=== PATIENT | male | born 1960 | race Caucasian/White ===

== ENCOUNTER 2019-08-27 07:03 | Outpatient (CLI) | payer BC, SELFPAY ==
[2019-08-27 07:29] LABS: HCT 45.8 % (40.0-50.0); HGB 15.9 g/dL (13.5-17.5); Mean Corp. HGB Concentration 34.7 g/dL (32.0-36.0); Mean Corpuscular Hemoglobin 32.5 pg (27.0-33.0); Mean Corpuscular Volume 93.7 fL (80-95); Mean Platelet Volume 9.1 fL (8.0-11.0); Platelet Count 258 x1000/uL (130-400); RBC 4.89 m/cumm (4.50-6.00); RBC Distribution Width 13.1 % (11.8-14.1); White Blood Cell Count 5.92 k/cumm (4.4-10.8)
[2019-08-27 08:29] LABS: ALT 53 U/L (16-63); AST 32 U/L (15-37); Albumin 3.8 g/dL (3.4-5.0); Alkaline Phosphatase 73 U/L (46-116); Anion Gap 6.3 mmol/L (3-11); BUN 15 mg/dL (7-18); Bilirubin, Total 0.6 mg/dL (0.2-1.0); CO2 29.7 mmol/L (21.0-32.0); CREATININE 1.22 mg/dL (0.70-1.30); Calcium 8.4 mg/dL (8.5-10.1); Calculated LDL 111 mg/dL (<100); Chloride 105 mmol/L (98-107); Cholesterol 159 mg/dL (<200); Glucose 104 mg/dL (74-106); HDL Cholesterol 30 mg/dL (40-60); Potassium 4.4 mmol/L (3.5-5.1); Sodium 141 mmol/L (136-145); Total Protein 6.8 g/dL (6.4-8.2); Triglyceride 90 mg/dL (<150)
== END 2019-08-27 07:23 ==
PROVIDERS: PCP Nurse Practitioner Family; Visit Provider Nurse Practitioner Family
DX: Z00.00 Encounter for general adult medical examination without abnormal findings (principal); I10 Essential (primary) hypertension; E78.6 Lipoprotein deficiency
CPT/HCPCS: 36415; 80053; 80061; 85027; 85025

== ENCOUNTER 2020-09-03 10:36 | Outpatient (REF) | payer BC, SELFPAY ==
[2020-09-03 15:51] LABS: Anion Gap 8.5 mmol/L (3-11); BUN 21 mg/dL (7-18); CO2 26.5 mmol/L (21.0-32.0); CREATININE 1.3 mg/dL (0.70-1.30); Calculated LDL 113 mg/dL (<100); Chloride 106 mmol/L (98-107); Cholesterol 164 mg/dL (<200); Glucose 103 mg/dL (74-106); HDL Cholesterol 34 mg/dL (40-60); Potassium 4.3 mmol/L (3.5-5.1); Sodium 141 mmol/L (136-145); Triglyceride 86 mg/dL (<150)
[2020-09-03 22:30] LABS: PSA, Screening 1.5 ng/mL (0.0-3.5)
== END 2020-09-03 10:37 | disposition home or self-care (01) ==
LOC: NCHCN 10:36
PROVIDERS: PCP Nurse Practitioner Family; Visit Provider Physician Assistant
DX: I10 Essential (primary) hypertension (principal); Z12.5 Encounter for screening for malignant neoplasm of prostate
CPT/HCPCS: 80048; 80061; 84153

== ENCOUNTER → 2021-11-24 02:59 | Outpatient (CLI) | payer BC, SELFPAY ==
--- NOTE | 2021-11-24 | DI.RAD_ITS ---
Exam(s) XR LUMBAR SPINE COMPLETE EXAM: XR LUMBAR SPINE COMPLETE CLINICAL HISTORY: LOW BACK PAIN M54.50, PAIN W/ RADICULOPATHY, NO TRAUMA TECHNIQUE: COMPARISON: No exams were available for comparison FINDINGS: Five views were obtained. There is a slight left convex lumbar scoliosis. SI joints appear well marni ntained. There is mild narrowing of intervertebral disc spaces throughout the lumbar spine. There are moderat e hypertrophic endplate and facet changes. No spondylolysis or spondylolisthesis. No evidence of fr acture. IMPRESSION: Moderate DJD lumbosacral spine. RADIATION DOSE DELIVERED: Total DLP
== END ==
PROVIDERS: PCP Nurse Practitioner Family; Visit Provider Physician Assistant
DX: M54.16 Radiculopathy, lumbar region (principal); M54.59 Other low back pain; M47.26 Other spondylosis with radiculopathy, lumbar region
CPT/HCPCS: 72110

== ENCOUNTER 2022-09-01 15:18 | Outpatient (REF) | payer OTHER, SELFPAY ==
[2022-09-01 16:35] LABS: Anion Gap 7.8 mmol/L (3-11); BUN 17 mg/dL (7-18); CO2 28.2 mmol/L (21.0-32.0); CREATININE 1.2 mg/dL (0.70-1.30); Calcium 9.3 mg/dL (8.5-10.1); Calculated LDL 97 mg/dL (<100); Chloride 105 mmol/L (98-107); Cholesterol 166 mg/dL (<200); Estimated GFR 69.23 (mL/min/1.73m2); Glucose 78 mg/dL (74-106); HDL Cholesterol 38 mg/dL (40-60); Potassium 4.4 mmol/L (3.5-5.1); Sodium 141 mmol/L (136-145); Triglyceride 157 mg/dL (<150)
[2022-09-04 09:51] LABS: PSA, Screening 1.2 ng/mL (<=4.5)
== END 2022-09-01 15:19 | disposition home or self-care (01) ==
LOC: NCHCN 15:18
PROVIDERS: Visit Provider Physician Assistant
DX: I10 Essential (primary) hypertension (principal); Z12.5 Encounter for screening for malignant neoplasm of prostate
CPT/HCPCS: 80048; 80061; 84153

== ENCOUNTER 2023-01-17 02:00 | Outpatient (CLI) | payer OTHER, SELFPAY ==
--- NOTE | 2023-01-17 14:47 | DI.RAD_ITS ---
Exam(s) XR ANKLE LT COMPLETE EXAM: XR ANKLE LT COMPLETE CLINICAL HISTORY: lt foot pain, achilles tendinitis,m76.62,m79.672,? daisy deformity TECHNIQUE: 2D digital imaging was performed of the left ankle. Three images were obtained. AP, lat eral and oblique views were obtained. COMPARISON: No exams were available for comparison FINDINGS: BONES: No acute fracture is present. No bony destructive lesion is seen. There is a plantar calcaneal spur. There is an enthesophyte at the posterior calcaneus. JOINTS:The ankle mortise is normally aligned. SOFT TISSUE: Normal. IMPRESSION: No acute fracture or dislocation. DATA REPOSITORY: RADIATION DOSE DELIVERED:
== END 2023-01-17 02:20 ==
LOC: DI 02:00
PROVIDERS: PCP Physician Assistant; Visit Provider Podiatrist
DX: M76.62 Achilles tendinitis, left leg (principal); M79.672 Pain in left foot
CPT/HCPCS: 73610

== ENCOUNTER 2023-09-25 07:56 | Outpatient (CLI) | payer OTHER, SELFPAY ==
[2023-09-25 08:07] LABS: ALT 64 U/L (16-63); AST 43 U/L (15-37); Albumin 3.8 g/dL (3.4-5.0); Alkaline Phosphatase 76 U/L (46-116); Anion Gap 8.1 mmol/L (3-11); BUN 17 mg/dL (7-18); Bilirubin, Total 0.7 mg/dL (0.2-1.0); CO2 27.9 mmol/L (21.0-32.0); CREATININE 1.4 mg/dL (0.70-1.30); Calcium 8.9 mg/dL (8.5-10.1); Calculated LDL 124 mg/dL (<100); Chloride 104 mmol/L (98-107); Cholesterol 189 mg/dL (<200); Estimated GFR 57.18 (mL/min/1.73m2); Glucose 114 mg/dL (74-106); HDL Cholesterol 34 mg/dL (40-60); Potassium 4.3 mmol/L (3.5-5.1); Sodium 140 mmol/L (136-145); Total Protein 7.4 g/dL (6.4-8.2); Triglyceride 156 mg/dL (<150)
== END 2023-09-25 07:57 | disposition home or self-care (01) ==
LOC: LBO 07:56
PROVIDERS: PCP Physician Assistant; Visit Provider Physician Assistant
DX: Z12.5 Encounter for screening for malignant neoplasm of prostate (principal); I10 Essential (primary) hypertension
CPT/HCPCS: 36415; 80053; 80061; 84153

== ENCOUNTER 2024-07-01 11:50 | Outpatient (CLI) | payer OTHER, SELFPAY ==
--- NOTE | 2024-07-01 06:00 | DI.RAD_ITS ---
Exam(s) XR PAIN CLINIC LUMBAR SP 2V EXAM: XR PAIN CLINIC LUMBAR SP 2V CLINICAL HISTORY: DX: Lumbar Radiculopathy. TECHNIQUE: Fluoroscopy was provided for the referring physician for guidance with performing pain cl inic injection procedure. COMPARISON: No exams were available for comparison FINDINGS: Please see procedure note for details. Fluoro time: 31.5 seconds RADIATION DOSE DELIVERED: Ka,r=15.46 mGy
[2024-07-01 12:01] VITALS: BP 165/88; PULSE 67; RESP 20; TEMP 37.1; O2SAT 97
--- NOTE | 2024-07-01 12:03 | PDOC.PAIN_ITS ---
Date of service: 07/01/24 Time of Service: 12:46 Pain Managment Procedure Note Procedure Note Procedure Note: Lumbar Interlaminar Epidural Steroid Injection ? Location: [L5-S1] ? Pre-procedure Diagnosis: M54.16- Radiculopathy, LUMBAR region ? Post-procedure Diagnosis:? The same as above ? Sedation:? ? None ? Medication: Depo-Medrol 80 mg, Omnipaque 1 mL ? Estimated blood loss:? less than 2 cc ? Surgeon:? Eyad Guerrero MD COMMENT: Reviewing MRI from 2021 showed severe stenosis of L3-4 and moderate at L4-5. Will proceed either with L4?5 or L5-S1 with catheter cephalad ? Procedure Detail:? The procedure and potential risks were explained to the patient and informed written consent was obtained. The patient was escorted to the procedure room and placed in the prone position. Pillows were utilized for proper positioning and comfort. Time out was performed in the procedure room with nursing staff confirming the patient's identity, procedure to be performed, allergies, and any blood thinning or anti-platelet medications.? The patient's neck and upper back was prepped with ChloraPrep and draped in a sterile fashion. Sterile technique was maintained throughout the procedure.? Sterile gloves were used, a face mask was worn, and new single dose vials of all medications were used with the top being swabbed with alcohol and given time to dry prior to withdrawal of medication. Lidocane 1% was used to anesthetize the skin.Using a 25-gauge 1.5 inch needle, 1% lidocaine was instilled into the superficial soft tissue overlying the targeted area to provide local anesthesia. With fluorosco pic guidance, a 17 -gauge Tuohy needle was advanced toward the interlaminar space of L5-S1. The needle was then advance through the ligamentum flavum and into the posterior epidural space using the loss of resistance technique. Correct needle placement was confirmed through review of the AP and contralateral oblique fluoroscopic views. A 19-gauge arrow catheter was threaded cephalad to L4-5 midline Following negative aspiration, one cc of Omnipaque 240 contrast was injected which confirmed good flow throughout the epidural space and no evidence of vascular flow or flow into adjacent compartments. Next, following negative aspiration, 1 cc's of normal saline and 80mg of Depo-Medrol was injected. The needle was gently removed. The patient tolerated the procedure well and was transported to the recovery area for observation and discharge instructions. Permanent images saved and recorded. PAIN PRE-PROCEDURE 12/30 POST-PROCEDURE 12/30 Plan:? Follow up prn. COMMENT: Patient has severe stenosis at L 3?4 from MRI dated 12/15/2021. If not improving will get updated MRI and consider surgical evaluation. Patient also has hip pain and positive Philippe's maneuver bilaterally-will get hip x-rays
[2024-07-01 12:29] VITALS: O2SAT 99
[2024-07-01 12:30] VITALS: O2SAT 99
[2024-07-01 12:40] VITALS: O2SAT 96
[2024-07-01] MEDS: methylPREDNISolone ACETATE 40 MG/ML VIAL IJ (12:47)
[2024-07-01] MEDS: Omnipaque 240 MG/ML 50 ML BTL IJ (12:47)
[2024-07-01] MEDS: Epidural Tray 1 EACH MC (12:48)
== END 2024-07-01 11:51 | disposition home or self-care (01) ==
LOC: PC 11:51
PROVIDERS: PCP Physician Assistant; Visit Provider Anesthesiology Pain Medicine
DX: M54.16 Radiculopathy, lumbar region (principal)
CPT/HCPCS: 00123; 62323; 72100; J1010; Q9967

== ENCOUNTER 2024-07-01 13:28 | Outpatient (CLI) | payer OTHER, SELFPAY ==
--- NOTE | 2024-07-01 12:45 | DI.RAD_ITS ---
Exam(s) XR HIP PELVIS ADULT BL EXAM: XR HIP PELVIS ADULT BL CLINICAL HISTORY: Hip pain, M25.559. TECHNIQUE: 2D digital imaging was performed. Three views. COMPARISON: No exams were available for comparison FINDINGS: BONES: No acute fracture is present. No bony destructive lesion is seen. JOINTS: No dislocation present. There is mild narrowing of the right hip joint space. There is bilat eral acetabular spurring, right greater than left. SI joints and pubic symphysis are unremarkable. SOFT TISSUE: Normal. IMPRESSION: [id number] change degenerative changes of the right hip. DATA REPOSITORY: RADIATION DOSE DELIVERED:
== END 2024-07-01 13:48 ==
LOC: DI 13:29
PROVIDERS: PCP Physician Assistant; Visit Provider Anesthesiology Pain Medicine
DX: M16.0 Bilateral primary osteoarthritis of hip (principal)
CPT/HCPCS: 73521

== ENCOUNTER 2024-08-27 00:20 | Outpatient (CLI) | payer OTHER, SELFPAY ==
--- NOTE | 2024-08-27 06:15 | DI.MRI_ITS ---
Exam(s) MR LUMBAR SPINE WO EXAM: MR LUMBAR SPINE WO CLINICAL HISTORY: pain,spinal stenosis, spondylosis, m47.816,m48.061. TECHNIQUE: Multiplanar multisequence MRI of the Lumbar spine was performed. COMPARISON: MR MR OUTSIDE IMAGES NEURO from 12/15/2021 FINDINGS: Bones: The last intervertebral disc space is designated the L5/S1 level for the numbering purpose of this examination. There are endplate osteophytes seen at multiple levels of the lumbar spine. Alig nment is satisfactory. There are endplate degenerative signal changes present throughout the lumbar s pine. Cord: The conus tip ends at the L1 level. It is of normal size and signal intensity. T12-L1: There is a small central disc herniation. No significant cord compression or nerve root comp ression is seen. No central spinal canal or neural foraminal stenosis. L1-2: There is a diffuse disc bulge with a central disc herniation and extrusion posterior to the L2 vertebral body. There is mild narrowing of the central spinal canal. There is mild left neural fora louise stenosis. No significant right neural foraminal stenosis is present. L2-3: There is a disc fused disc bulge and a small central disc herniation. This causes zany-ar-pmzh rate narrowing of the central spinal canal. There is mild left neural foraminal stenosis. No signifi cant right neural foraminal stenosis. L3-4: There is a large diffuse disc bulge. Degenerative changes of the facets. The result is marked narrowing of the central spinal canal. Minimal narrowing of the neural foramen is seen bilaterally, left greater than right. L4-5: There is a diffuse disc bulge. There are hypertrophic changes of the facets and ligamentum fla vum, left greater than right. There is resultant narrowing of the central spinal canal. There is mo derate left neural foraminal stenosis and no significant right neural foraminal stenosis. L5-S1: There is a diffuse disc bulge slightly eccentric to the left. May impress upon the left S1 ne rve root. There is no significant central spinal canal stenosis. There are degenerative changes of the facets present. There is minimal narrowing of the neural foramen on the left. No significant ri ght neural foraminal stenosis. Soft tissues: The visualized SI joints and sacrum are well maintained. Note is made of bilateral rosa elena l cysts. IMPRESSION: 1. Significant changes seen at L3-L4 resulting in marked central spinal canal stenosis. 2. Multilevel degenerative changes in the lumbar spine as described above. Please see the above disc ussion for the details a each level. DATA REPOSITORY:
== END 2024-08-27 00:40 ==
LOC: DI 00:21
PROVIDERS: PCP Physician Assistant; Visit Provider Anesthesiology Pain Medicine
DX: M47.816 Spondylosis without myelopathy or radiculopathy, lumbar region
CPT/HCPCS: 72148

== ENCOUNTER 2025-04-20 04:12 | Outpatient (CLI) | payer OTHER, SELFPAY ==
[2025-04-20 14:29] LABS: Abs Immature Grans 0.00 10^3/uL (0.0-0.06); HCT 44.5 % (40.0-50.0); HGB 15.2 g/dL (13.5-17.5); Immature Grans % 0.0 %; MCH 32.0 pg (27.0-33.0); MCHC 34.2 % (32.0-36.0); MCV 94 fL (80-95); MPV 9.6 fL (8.0-11.0); Platelet Count 226 10^3/uL (130-400); RBC 4.75 10^6/uL (4.36-5.78); RDW 13.0 % (11.8-14.1); RDW-SD 44.8 fL; WBC 5.27 10^3/uL (4.4-10.8)
[2025-04-20 14:44] LABS: Anion Gap 9.1 mmol/L (3-11); BUN 14 mg/dL (7-18); CO2 24.9 mmol/L (21.0-32.0); Calcium 8.5 mg/dL (8.5-10.1); Calculated LDL 120 mg/dL (<100); Chloride 106 mmol/L (98-107); Cholesterol 174 mg/dL (<200); Estimated GFR 61.73 (mL/min/1.73m2); Glucose 106 mg/dL (74-106); HDL Cholesterol 34 mg/dL (>or=40); Potassium 3.9 mmol/L (3.5-5.1); Sodium 140 mmol/L (136-145); Triglyceride 102 mg/dL (<150)
== END 2025-04-20 04:13 | disposition home or self-care (01) ==
LOC: LOS 04:12
PROVIDERS: PCP Physician Assistant; Visit Provider Physician Assistant
DX: I10 Essential (primary) hypertension (principal); K21.9 Gastro-esophageal reflux disease without esophagitis
CPT/HCPCS: 36415; 80048; 80061; 85025

== ENCOUNTER 2025-06-24 12:03 | Outpatient (CLI) | payer OTHER, SELFPAY ==
[2025-06-24 23:15] LABS: PSA, Diagnostic 1.5 ng/mL (<=4.5)
== END 2025-06-24 12:04 | disposition home or self-care (01) ==
LOC: LBO 12:05
PROVIDERS: PCP Physician Assistant; Visit Provider Urology
DX: R39.9 Unspecified symptoms and signs involving the genitourinary system (principal)
CPT/HCPCS: 36415; 84153